=== PATIENT | female | born 1980 | race Caucasian/White ===

== ENCOUNTER → 2024-05-31 | Outpatient (CLI) | payer OTHER ==
[~2024-05-31] MED LIST: ADVIL200 MG PO; ALDACTONE 25MG25 M1 PO; ALLEGRA-D 24HR1 T24 PO; AMOXICILLIN875 MG PO; ATIVAN 0.50.5 MG/TAB PO; Albuterol 0.083% Neb Soln 2.5 MG/3 ML UD IH ONE; BENADRYL25 M2 PO; CEFTIN500 MG PO; CELEXA 20MG20 MG/TAB PO; CEPHALEXIN500 M1 PO; CLARITIN 1010 MG/TAB PO; COLACE 100100 MG/CAP PO; INDERAL 10MG10 MG PO; LIDO3%CREAM TP; MOTRIN 600600 MG/TAB PO; Methacholine Vial A (Clear Label Base-Cntrl) IH ONE; Methacholine Vial B (Red Label) 0.0625 MG/ML 3 ML VIAL.NEB IH ONE; Methacholine Vial C (Orange Label) 0.25 MG/ML 3 ML VIAL.NEB IH ONE; Methacholine Vial D (Yellow Label) 1 MG/ML 3 ML VIAL.NEB IH ONE; NORCO 325 MG-51 TAB PO; NURTEC ODT75 MG PO; OMNICEF 300MG300 MG PO; PREDNISONE50 MG PO; PRILOSEC 20MG20 MG PO; PRILOSEC10 MG PO; SINGULAIR 110 MG/TAB PO; School release; TESSALON PERLE200 MG PO; UBRELVY50 MG PO; ZOFRAN 4MG T4 MG/TAB PO; ZOFRAN ODT4 MG PO; ZOPICLONE PO; [UNRECOGNIZED DRUG - OTHER] PO
== END ==
LOC: COL.PUL 09:20
DX: R06.02 Shortness of breath (principal)
CPT/HCPCS: J7674

== ENCOUNTER 2024-07-22 20:35 | Emergency (ER) | payer OTHER ==
[~2024-07-22] VITALS: Ht 160 cm; Wt 82.0 kg
[~2024-07-22 20:35] MED LIST changes: -Albuterol 0.083% Neb Soln 2.5 MG/3 ML UD IH ONE; -Methacholine Vial A (Clear Label Base-Cntrl) IH ONE; -Methacholine Vial B (Red Label) 0.0625 MG/ML 3 ML VIAL.NEB IH ONE; -Methacholine Vial C (Orange Label) 0.25 MG/ML 3 ML VIAL.NEB IH ONE; -Methacholine Vial D (Yellow Label) 1 MG/ML 3 ML VIAL.NEB IH ONE
[2024-07-22 20:50] VITALS: TEMP 98.2
[2024-07-22] MEDS ORDERED: Albuterol 0.083% Neb Soln 2.5 MG/3 ML UD IH ONE (22:15)
[2024-07-22 22:52] LABS: BASO % 0.3 % (0.0-2.0); EOS # 0.2 K/mm3 (0.0-0.7); EOS % 2.2 % (0.0-4.0); GRAN # 5.8 K/mm3 (1.4-6.5); GRAN % 64.3 % (42.2-75.2); HEMATOCRIT 40.8 % (37.0-47.0); HEMOGLOBIN 13.6 g/dl (12.5-16.0); LYMPH # 2.3 K/mm3 (1.2-3.4); LYMPH % 25.6 % (20.0-51.0); MEAN CELL VOLUME 85 fl (80.0-100.0); MEAN CORPUSCULAR HEMOGLOBIN 28 pg (27-31); MEAN CORPUSCULAR HGB CONC 33 g/dl (33.0-37.0); MEAN PLATELET VOLUME 10.5 fl (7.4-10.4); MONO # 0.7 K/mm3 (0.1-0.6); MONO % 7.3 % (1.7-9.3); PLATELET COUNT 285 K/mm3 (130-400); RED BLOOD COUNT 4.83 M/mm3 (4.10-5.30); REDCELL DISTRIBUTION WIDTH-CV 13.3 % (11.5-14.5)
[2024-07-22 23:10] LABS: ALBUMIN 3.7 g/dL (3.5-5.0); BILIRUBIN,TOTAL 0.2 mg/dL (0.2-1.2); CALCIUM 9.3 mg/dL (8.4-10.2); CREATININE, serum 0.81 mg/dL (0.57-1.11); POTASSIUM 3.7 mEq/L (3.5-4.5); TOTAL PROTEIN 6.9 g/dl (6.2-8.1)
[2024-07-23] MEDS ORDERED: diphenhydrAMINE 50 MG/ML 1 ML VIAL IV ONE (00:15)
[2024-07-23] MEDS ORDERED: Ketorolac 15 MG/ML VIAL IV ONE (00:15)
[2024-07-23 00:46] VITALS: BP 151/90; PULSE 119
== END 2024-07-23 00:46 | disposition home or self-care (01) ==
LOC: COL.ER 20:35
PROVIDERS: Physician Assistant
DX: R05.9 Cough, unspecified (principal)
CPT/HCPCS: J0780; J1200; J1885